=== PATIENT | female | born 1975 | race African-American/Black ===

== ENCOUNTER 2022-02-02 10:17 | Emergency (ER) | payer OTHER, SELFPAY ==
[2022-02-02 10:31] VITALS: BP 151/98; PULSE 77; RESP 18; TEMP 36.6; O2SAT 100
--- NOTE | 2022-02-02 11:43 | ED.EAR ---
HPI - Ear Problem General Chief complaint: Ear Stated complaint: bilateral ear pain, headache Time Seen by Provider: 02/02/22 11:04 History of Present Illness HPI Narrative: 40-year-old female presents to the emergency room for multiple complaints. Patient states that she has a bandlike headache across her forehead that is mildly photosensitive. Patient has not taken any medications to alleviate this. Patient also complains of bilateral ear pain. States the pain radiates behind her ear around the corner of her jaw and into her throat. Does endorse a recent URI symptoms. Is head injury or trauma. Denies visual or hearing changes. Denies fever. Denies nausea or vomiting. Related Data Allergies Allergy/AdvReac Type Severity Reaction Status Date / Time No Known Allergies Allergy Verified 02/02/22 10:33 Review of Systems Review of Systems: CONSTITUTIONAL: Denies fever, chills, or sweats. EYES: Denies visual changes, redness, or discharge. ENT: Reports bilateral ear pain CARDIOVASCULAR: Denies chest pain, palpitations, or edema. RESPIRATORY: Denies cough or dyspnea. GASTROINTESTINAL: Denies abdominal pain, nausea, vomiting, or diarrhea. GENITOURINARY: Denies dysuria or hematuria. SKIN: Denies rash or itching. MUSCULOSKELETAL: Denies back pain, joint pain, or myalgia. NEUROLOGIC: Reports headache PSYCHIATRIC: Denies anxiety or depression. Exam Narrative: GENERAL: Well-appearing, well-nourished, no physical limitations, and in no acute distress. HEAD: Normocephalic, atraumatic. EYES: Conjunctivae normal, PERRLA and EOMI. ENT: External ears normal, bilateral TMs normal bilaterally with clear effusion NECK: Supple. No meningeal signs. CHEST: Clear to auscultation. No respiratory distress. No wheezes rales or rhonchi. No tenderness. HEART: Regular rate and rhythm. No murmur heard. Normal peripheral pulses. EXTREMITIES: Normal range of motion. No edema. No clubbing or cyanosis SKIN: Warm, dry, no rash. No noted wounds NEURO: No focal deficits. Alert and oriented x3. MAEW. CN's II-XI intact bilaterally, normal gait PSYCH: Cooperative. Normal mood and affect. Course Vital Signs Vital signs: Vital Signs Temperature 36.6 C 02/02/22 10:31 Pulse Rate 77 02/02/22 10:31 Respiratory Rate 18 02/02/22 10:31 Blood Pressure 151/98 H 02/02/22 10:31 Pulse Oximetry 100 02/02/22 10:31 Oxygen Delivery Room Air 02/02/22 10:31 Temperature 36.6 C 02/02/22 10:31 Pulse Rate 77 02/02/22 10:31 Respiratory Rate 18 02/02/22 10:31 Blood Pressure 151/98 H 02/02/22 10:31 Pulse Oximetry 100 02/02/22 10:31 Oxygen Delivery Room Air 02/02/22 10:31 Medical Decision Making Vital Signs Vital Signs: Vital Signs Temperature 36.6 C 02/02/22 10:31 Pulse Rate 77 02/02/22 10:31 Respiratory Rate 18 02/02/22 10:31 Blood Pressure 151/98 H 02/02/22 10:31 Pulse Oximetry 100 02/02/22 10:31 Oxygen Delivery Room Air 02/02/22 10:31 Temperature 36.6 C 02/02/22 10:31 Pulse Rate 77 02/02/22 10:31 Respiratory Rate 18 02/02/22 10:31 Blood Pressure 151/98 H 02/02/22 10:31 Pulse Oximetry 100 02/02/22 10:31 Oxygen Delivery Room Air 02/02/22 10:31 Discharge Plan Discharge Clinical Impression: Acute tension headache, Eustachian tube disorder Patient Disposition: Home, Self-Care Condition: Stable Instructions: Antibiotic Form, Acute Headache (DC), Earache (ED) Prescriptions: New prednisone 20 mg tablet 60 mg PO DAILY 5 Days Qty: 15 0RF pseudoephedrine HCl 120 mg tablet extended release 120 mg PO Q12H Qty: 20 0RF Follow-up/Referrals: PHYSICIAN NOT ON STAFF,NONSTAFF [Primary Care Provider] - Time of Disposition: 11:46
[2022-02-02] MEDS: IBUPROFEN 600 MG TABLET PO (11:57)
== END 2022-02-02 12:04 | disposition home or self-care (01) ==
PROVIDERS: Emergency Provider Nurse Practitioner Family
DX: G44.209 Tension-type headache, unspecified, not intractable (principal); H69.93 Unspecified Eustachian tube disorder, bilateral
CPT/HCPCS: 96372; 99283; A9270; J1100